=== PATIENT | female | born 1990 | race African-American/Black ===

== ENCOUNTER 2021-10-05 09:30 | Emergency (ER) | payer OTHER ==
[~2021-10-05] VITALS: Ht 167.6 cm; Wt 143.0 kg
[~2021-10-05 09:30] MED LIST: BECL8.7A6 INH
[2021-10-05] MEDS ORDERED: ACETAMINOPHEN WITH CODEINE 300/30MG TABLET PO STA (10:07)
[2021-10-05 10:53] LABS: BASOPHILS % 0.4 % (0.0-2.0); EOSINOPHILS % 0.4 % (0.0-5.0); MEAN CORPUSCULAR HEMOGLOBIN 28.3 pg (28.0-32.0); MEAN CORPUSCULAR VOLUME 87.6 fL (81.0-99.0); MEAN PLATELET VOLUME 8.1 fl (7.4-10.4); MONOCYTES % 6.9 % (2.0-8.0); NEUTROPHILS % 58.3 % (40.0-76.0); PLATELET 382 x1000/uL (130-400); RED BLOOD CELL COUNT 3.88 mill/uL (4.2-5.4); RED CELL DISTRIBUTION WIDTH 15.7 % (11.6-14.6)
[2021-10-05 11:03] LABS: CHLORIDE 106 mEq/L (98-107)
[2021-10-05 12:16] VITALS: BP 122/68
[2021-10-05] MEDS ORDERED: IBUP-2029 MT (12:46)
== END 2021-10-05 12:59 | disposition home or self-care (01) ==
LOC: ER 09:30
DX: R07.89 Other chest pain (principal)
CPT/HCPCS: 36415; 71045; 80053; 83880; 84484; 85025; 93005; 99285

== ENCOUNTER 2021-12-12 13:48 | Emergency (ER) | payer OTHER ==
[~2021-12-12] VITALS: Ht 167.6 cm; Wt 150.0 kg
[~2021-12-12 13:48] MED LIST changes: +IBUP-2029 MT
[2021-12-12 13:57] VITALS: BP 159/89
[2021-12-12] MEDS: LIDOCAINE HCL 1% 20ML VIAL (Pyxis) INJ INFIL ONE (19:45)
[2021-12-12] MEDS: ACETAMINOPHEN 325MG TABLET PO ONE (20:00)
[2021-12-12] MEDS ORDERED: ACET-2708 MT (20:56)
[2021-12-12] MEDS ORDERED: CEPH500C2 MT (20:56)
[2021-12-12] MEDS: BACITRACIN ZINC OINT UDPKT TOP ONE (21:27)
[2021-12-12] MEDS: CEPHALEXIN 250MG CAPSULE PO ONE (21:27)
== END 2021-12-12 21:28 | disposition home or self-care (01) ==
LOC: ER 13:48
DX: L03.012 Cellulitis of left finger (principal); I10 Essential (primary) hypertension; Z13.9 Encounter for screening, unspecified
CPT/HCPCS: 10060; 99283; J3490; Z7610

== ENCOUNTER 2022-01-23 08:16 | Emergency (ER) | payer OTHER ==
[~2022-01-23] VITALS: Ht 165.1 cm; Wt 107.0 kg
[~2022-01-23 08:16] MED LIST changes: +ACET-2708 MT; +CEPH500C2 MT
[2022-01-23] MEDS ORDERED: ACETAMINOPHEN WITH CODEINE 300/30MG TABLET PO STA (10:18)
[2022-01-23] MEDS ORDERED: KETOROLAC 60MG/2ML VIAL IM STA (10:18)
[2022-01-23] MEDS ORDERED: SULF1TAB48 MT (10:36)
[2022-01-23] MEDS ORDERED: IBUP-2029 MT (10:36)
[2022-01-23] MEDS ORDERED: TRAM50TA3 MT (10:36)
[2022-01-23] MEDS ORDERED: DOCU100T MT (10:36)
[2022-01-23] MEDS ORDERED: AMOX1TAB16 MT (10:36)
[2022-01-23 11:39] VITALS: BP 116/75
== END 2022-01-23 11:40 | disposition home or self-care (01) ==
LOC: ER 08:16
DX: K64.9 Unspecified hemorrhoids (principal)
CPT/HCPCS: 99283